=== PATIENT | female | born 1955 | race American Indian/Alaskan Native ===

== ENCOUNTER 2019-06-01 14:09 | Emergency (ER) | payer SELFPAY ==
--- NOTE | 2019-06-01 14:38 | Event Note ---
ED Screening Note Date of service: 06/01/19 Time: 14:34 ED Screening Note: This is a 64 y.o. F. that presents to the ER with constipation and abdominal pain for 3 days. Reports last bowl movement 3 days ago and liquid consistancy. Patient traveled from [place] last week to visit family. This initial assessment/diagnostic orders/clinical plan/treatment(s) is/are subject to change based on patients health status, clinical progression and re- assessment by fellow clinical providers in the ED. Further treatment and workup at subsequent clinical providers discretion. Patient/guardian urged not to elope from the ED as their condition may be serious if not clinically assessed and managed. Initial orders include: XR of abdomen
[2019-06-01 15:08] LABS: Basophils % (Auto) 0.2 % (0.0-1.8); Eosinophils % (Auto) 0.1 % (0.0-4.3); Hematocrit 42.2 % (30.3-42.9); Hemoglobin 13.9 gm/dl (10.1-14.3); Lymphocytes # (Auto) 0.9 K/mm3 (1.2-5.4); Lymphocytes % (Auto) 6.8 % (13.4-35.0); Mean Corpuscular HGB Conc 33 % (30-34); Mean Corpuscular Volume 86 fl (79-97); Monocytes # (Auto) 0.9 K/mm3 (0.0-0.8); Monocytes % (Auto) 7.1 % (0.0-7.3); Platelet Count 310 K/mm3 (140-440); Red Blood Count 4.88 M/mm3 (3.65-5.03)
[2019-06-01] MEDS ORDERED: CITRATE OF MAGNESIA PO ONE (15:13)
[2019-06-01] MEDS ORDERED: XYLOCAINE TOPICAL 5% TP ONE (15:14)
[2019-06-01] MEDS ORDERED: DULCOLAX PR ONE (15:16)
[2019-06-01] MEDS ORDERED: NACL 0.9% 1000 ML 1,000 ML IV ONE (15:23)
[2019-06-01 15:28] LABS: Alanine Aminotransferase 23 units/L (7-56); Albumin 3.8 g/dL (3.9-5); BUN/Creatinine Ratio 16; Blood Urea Nitrogen 11 mg/dL (7-17); Hemolysis Index 5
--- NOTE | 2019-06-01 15:32 | Emergency Department Report ---
ED Abdominal Pain HPI - General Chief Complaint: Abdominal Pain Stated Complaint: CONSTIPATION Time Seen by Provider: 06/01/19 14:34 Source: patient Mode of arrival: Ambulatory Limitations: Language Barrier - History of Present Illness Initial Comments: This is a 64 y.o. F. that presents to the ER with constipation and abdominal pain for 3 days. Reports last bowl movement 3 days ago and liquid consistancy complaining of rectal pain with BM. Patient traveled from [place] last week to visit family. Onset/Timin -: Gradual, days(s) Location: diffuse Radiation: none Migration to: no migration Severity scale (0 -10): 7 Quality: cramping, stabbing Consistency: constant Improves With: nothing Worsens With: eating - Related Data Previous Rx's Medication Instructions Recorded Last Taken Type Docusate Sodium [Colace] 100 mg PO BID 15 Days #30 capsule 06/01/19 Unknown Rx Allergies Allergy/AdvReac Type Severity Reaction Status Date / Time No Known Allergies Allergy Unverified 06/01/19 14:14 ED Review of Systems ROS: Stated complaint: CONSTIPATION Other details as noted in HPI Comment: All other systems reviewed and negative ENT: denies: ear pain, throat pain Cardiovascular: denies: chest pain, palpitations Gastrointestinal: abdominal pain, nausea, constipation Genitourinary: denies: urgency, dysuria Neurological: denies: headache, weakness ED Past Medical Hx - Past Medical History Hx Hypertension: Yes - Social History Smoking Status: Never Smoker Substance Use Type: None - Medications Home Medications: Home Medications Medication Instructions Recorded Confirmed Last Taken Type Docusate Sodium [Colace] 100 mg PO BID 15 Days #30 capsule 06/01/19 Unknown Rx ED Physical Exam - General Limitations: Language Barrier General appearance: alert, in no apparent distress - Head Head exam: Present: atraumatic, normocephalic - Eye Eye exam: Present: normal appearance, PERRL, EOMI Pupils: Present: normal accommodation - ENT ENT exam: Present: normal exam, normal orophraynx - Neck Neck exam: Present: normal inspection - Respiratory Respiratory exam: Present: normal lung sounds bilaterally - Cardiovascular Cardiovascular Exam: Present: regular rate, normal rhythm - GI/Abdominal GI/Abdominal exam: Present: soft - Rectal Rectal exam: Present: fecal impaction ED Course Vital Signs 06/01/19 14:35 Temperature 99.1 F Pulse Rate 113 H Respiratory 15 Rate Blood Pressure 146/77 O2 Sat by Pulse 100 Oximetry ED Medical Decision Making - Lab Data Result diagrams: 06/01/19 14:52 06/01/19 14:52 - Medical Decision Making fecal impaction on exam and xray lidocaine 5%, used for fecal desimpaction, good amount of solid stool, out, feels much better, will d/c home. - Differential Diagnosis constipation, sbo, fecal impaction Critical care attestation.: If time is entered above; I have spent that time in minutes in the direct care of this critically ill patient, excluding procedure time. ED Disposition Clinical Impression: Fecal impaction in rectum Constipation Qualifiers: Constipation type: slow transit constipation Qualified Code(s): K59.01 - Slow transit constipation Disposition: - TO HOME OR SELFCARE Is pt being admited?: No Does the pt Need Aspirin: No Condition: Stable Instructions: Abdominal Pain (ED) Prescriptions: Docusate Sodium [Colace] 100 mg PO BID 15 Days #30 capsule
[2019-06-01 15:41] LABS: Bilirubin,Urine NEG (Negative); Blood,Urine NEG (Negative); Color,Urine Yellow (Yellow); Mucus,Urine FEW /HPF; Protein,Urine <15 mg/dL mg/dL (Negative); Urobilinogen,Urine < 2.0 mg/dL (<2.0)
--- NOTE | 2019-06-01 15:42 | XRay Report ---
Abdomen one view. 06/01/2019. HISTORY: Constipation. FINDINGS: Gas is scattered throughout the abdomen in a nonobstructive fashion. Negative for suspiciou s calcification. A large amount of stool overlies the rectal vault. IMPRESSION: Fecal impaction. Signer Name: Farhat Atkins MD Signed: 06/01/2019 3:37 PM Workstation Name: [id number]
[2019-06-01 17:55] VITALS: BP 137/84
== END 2019-06-01 17:51 | disposition home or self-care (01) ==
LOC: ED 14:09
DX: K59.00 Constipation, unspecified (principal); K56.49 Other impaction of intestine; I10 Essential (primary) hypertension
CPT/HCPCS: 36415; 74019; 80053; 81001; 85025; 99284; J7030